=== PATIENT | female | born 1975 | race Two or more races ===

== ENCOUNTER 2017-02-14 14:39 | Emergency (ER) | payer OTHER ==
[~2017-02-14] VITALS: Ht 160 cm; Wt 63.5 kg
--- NOTE | 2017-02-14 15:02 | NUR ---
ALERT AND ORIENTED X 4, PT W/ C/O NECK PAIN WORST WITH MOVEMENT X 1 WK. GETS RELIEF FROM TYLENOL, NAD VSS RR EVEN AND UNLABORED. DR GAMBOA AT BEDSIDE FOR EVALUATION
[2017-02-14 15:12] VITALS: BP 138/69
[2017-02-14] MEDS ORDERED: IBUPROFEN 600 MG TABLET PO ONE ×2 (15:16→15:30)
--- NOTE | 2017-02-14 15:20 | NUR ---
Patient discharged to home in stable condition. Written and verbal after care instructions given. Patient verbalizes understanding of instruction.
== END 2017-02-14 15:20 | disposition home or self-care (01) ==
LOC: ER 14:45
DX: S13.4XXA Sprain of ligaments of cervical spine, initial encounter (principal); I10 Essential (primary) hypertension; X58.XXXA Exposure to other specified factors, initial encounter; Y93.89 Activity, other specified; Y92.89 Other specified places as the place of occurrence of the external cause; Y99.8 Other external cause status
CPT/HCPCS: 99282; A4606; Z7610